=== PATIENT | male | born 1970 | race Caucasian/White ===

== ENCOUNTER 2018-01-12 13:40 | Emergency (ER) | payer OTHER ==
--- NOTE | 2018-01-12 15:34 | EDPHY ---
General Time Seen by Provider: 01/12/18 14:42 Narrative: CHIEF COMPLAINT: Forehead laceration HISTORY OF PRESENT ILLNESS: Patient presents with complaints of laceration. This was sustained while at work just within the past hour. He says he was struck in the head with an object that cut his right side of his forehead. No pain, loss of consciousness. No neck pain. No difficulty with vision nausea vomiting. He says he has no complaints that would not be here unless there were no laceration. No other associated complaints or modifying factors. TIME OF INJURY: Less than 1 hr prior to arrival TETANUS STATUS: Less than 4 years ago MEDICAL/SURGICAL/SOCIAL HISTORY: Uncomplicated. Does smoke cigarettes. Lives and works here independently REVIEW OF SYSTEMS: Ten systems reviewed and are negative unless otherwise noted in the HPI EXAMINATION General Appearance: Alert, no distress Head: normocephalic. No depression or hematoma. No Carvajal sign or raccoon eyes. There is a right frontal scalp laceration as below. There is no injury to the galea. Cardiovascular: Pulses normal throughout. Brisk cap refill Neurological: GCS 15. A&O, sensory symmetric, strength symmetric Skin: Warm and dry, no rash. There is a 3 cm laceration to the right anterior forehead. This involves subcutaneous tissue only. There is no involvement of the galea. No foreign body Extremities: Nontender, no pedal edema MDM: 3:00 p.m. Laceration of the forehead without complicating factors. He is neuro intact with no signs of intracranial abnormality or basilar skull fracture. [place] CT head rules negative. Tetanus up-to-date. I have anesthetize the wound. Proceed with irrigation closure. 3:30 p.m. Simple right forehead laceration without injury to the galea or foreign body. No pulsatile bleeding. Tolerated well without difficulty. We discussed daily wound care. We discussed worker's compensation follow-up. We discussed returning for suture removal in 7 days. We discussed head injury precautions including headache, fever, chills, nausea, vomiting, neck pain or stiffness. He is comfortable this plan and discharged home stable condition. PROCEDURE: Laceration repair Consent: Verbal Location: Right frontal scalp Length of repair: 3 cm Complexity: Complex Layer involvement: Single Anesthesia: Local per 1% lidocaine plain, 5 mL Irrigation: Extensive Debridement: None Procedure description: Following good anesthesia, the wound was copiously irrigated. Wound bed was explored with a sterile glove, and there is no foreign body noted. no injury to the galea, Wound borders were approximated well with good hemostasis. Tolerated well without complication. Suture/Staple material: 6-0 Prolene, 5 simple ruptured sutures Wound care: Routine as discussed Suture/Staple removal: 7 Days SUPERVISION: This patient was independently evaluated without direct involvement of or examination by the attending physician. - History Smoking Status: Never smoked - Objective Vital Signs: Initial Vital Signs Temperature (C) 97.9 F 01/12/18 13:44 Heart Rate 68 01/12/18 13:44 Respiratory Rate 17 01/12/18 13:44 Blood Pressure 175/105 H 01/12/18 13:44 O2 Sat (%) 96 01/12/18 13:44 O2 Delivery Mode Room Air Allergies/Adverse Reactions: No Known Allergies Allergy (Unverified 01/12/18 13:44) Home Medications: Medication Instructions Recorded NK [No Known Home Meds] 01/12/18 Departure - Departure Disposition: Home, Routine, Self-Care Clinical Impression: Forehead laceration Qualifiers: Encounter type: initial encounter Qualified Code(s): S01.81XA - Laceration without foreign body of other part of head, initial encounter Condition: Good Instructions: Care For Your Stitches (ED), Laceration (ED) Additional Instructions: 1. Daily wound care as discussed 2. Ice to affected area this evening 3. ED precautions for any pain, redness, warmth, swelling or purulence 4. You will need to contact and follow up with worker's compensation provider Referrals: Physician,Emergency Dept, [Medical Doctor] - As per Instructions (Seven days for suture removal) Stand Alone Forms: Work Comp Follow Up
[2018-01-12 15:43] VITALS: BP 142/92
== END 2018-01-12 15:42 | disposition home or self-care (01) ==
PROC: 0HQ0XZZ Repair Scalp Skin, External Approach (ICD-10-PCS; principal; 2018-01-12)
DX: S01.01XA Laceration without foreign body of scalp, initial encounter (principal); F17.210 Nicotine dependence, cigarettes, uncomplicated; W22.8XXA Striking against or struck by other objects, initial encounter; Y99.0 Civilian activity done for income or pay; Y93.89 Activity, other specified